=== PATIENT | female | born 1960 | race Caucasian/White ===

== ENCOUNTER 2019-03-20 08:09 | Day surgery (SDC) | payer OTHER ==
[2019-03-19 09:44] VITALS: BMI 27.3
[~2019-03-20 08:09] MED LIST: LACTATED RINGERS 1,000 ML IV SCH
[2019-03-20 09:04] VITALS: TEMP 98.6
[2019-03-20] MEDS ORDERED: LIDOCAINE 1%-EPI 1:100,000 20 ML VIAL INTRAARTIC ONE (09:07)
[2019-03-20] MEDS ORDERED: PROPOFOL 10 MG/ML 20 ML VIAL IV ONE (09:31)
--- NOTE | 2019-03-20 09:51 | P.PCN ---
Date of Procedure: 03/20/19 Procedure(s) Performed: BRIEF HISTORY: Patient is a 59-year-old pleasant female scheduled for an elective colonoscopy as a part of variation of prior history of colon polyps. Last colonoscopy was 5 years ago. PROCEDURE PERFORMED: Colonoscopy with biopsy. PREOPERATIVE DIAGNOSIS: History of colon polyps. IV sedation per Anesthesia. PROCEDURE: After informed consent was obtained, the patient, was brought into the endoscopy unit. IV sedation was administered by Anesthesia under continuous monitoring. Digital rectal examination was normal. Initially the Olympus CF-160 flexible video colonoscope was then inserted in the rectum, gradually advanced into the cecum without any difficulty. Careful examination was performed as the scope was gradually being withdrawn. Ileocecal valve and the appendiceal orifice were visualized and appeared normal. Prep was excellent. In the base of the cecum there was a 3 mm sessile polyp that was removed by cold biopsy. Mucosa of the cecum, ascending colon, transverse colon, descending colon, sigmoid colon, and rectum appeared normal. Retroflexion was performed in the rectum and no lesions were seen. The patient tolerated the procedure well. IMPRESSION: 3 mm sessile cecal polyp status post removal by biopsy Rest of the colon appeared normal RECOMMENDATIONS: Findings of this examination were discussed with the patient is a family. She was advised to follow with the biopsy results and have a repeat repeat surveillance colonoscopy in 5 years from now because of the prior history of colon polyps.
[2019-03-20 10:08] VITALS: BP 163/97; PULSE 56; RESP 18
== END 2019-03-20 10:32 | disposition home or self-care (01) ==
LOC: ORWHC2ENDO 08:09
PROVIDERS: ATTEND Internal Medicine Gastroenterology
DX: Z86.010 Personal history of colon polyps (principal); D12.0 Benign neoplasm of cecum; Z79.82 Long term (current) use of aspirin; Z79.899 Other long term (current) drug therapy
CPT/HCPCS: 81025; 88305; 45380; J2704